=== PATIENT | female | born 1960 | race Two or more races ===

== ENCOUNTER 2024-01-07 13:15 | Emergency (ER) | payer OTHER ==
[~2024-01-07] VITALS: Ht 154.9 cm; Wt 81.4 kg
[2024-01-07] MEDS: cloNIDine HCL 0.1 MG TAB PO ONE (14:11)
[2024-01-07 14:30] LABS: Basophils # (auto) 0 10 ^3/uL (0-0.2); Basophils % (auto) 0.6 % (0.0-2.0); Eosinophils # (auto) 0 10 ^3/uL (0-0.8); Eosinophils % (auto) 0.8 % (0.0-7.0); Hematocrit 45.8 % (36.0-46.0); Hemoglobin 14.8 g/dL (12.2-16.2); Lymphocytes # (auto) 2.5 10 ^3/uL (0.4-5.4); Lymphocytes % (auto) 52.8 % (10.0-50.0); Mean Corpuscular Hemoglobin 29.3 pg (28.0-32.0); Mean Corpuscular Hgb Conc. 32.4 g/dL (32.0-36.0); Mean Corpuscular Volume 90.4 fL (80.0-100.0); Monocytes # (auto) 0.5 10 ^3/uL (0-1.3); Neutrophils # (auto) 1.7 10 ^3/uL (1.6-8.6); Neutrophils % (auto) 34.8 % (37.0-80.0); Nucleated Red Blood Cells % 0.2 %; Red Blood Cells 5.06 10^6/uL (4.0-5.20); Red Cell Distribution Width 14.9 % (11.8-14.3); White Blood Cell 4.8 10^3/uL (4.4-10.8)
[2024-01-07 14:46] LABS: Alanine Aminotransferase 26 U/L (7-40); Albumin 4.5 g/dL (3.2-4.8); Alkaline Phosphatase 87 U/L (46-116); Anion Gap 7 (5-15); Aspartate Aminotransferase 35 U/L (13-40); BUN/Creatinine Ratio 15.5 (10.0-20.0); Blood Urea Nitrogen 11 mg/dL (9-23); Calcium 9.2 mg/dL (8.5-10.1); Carbon Dioxide 28 mmol/L (20-30); Chloride 104 mmol/L (98-107); Glucose 101 mg/dL (74-106); Potassium 4.7 mmol/L (3.5-5.1); Sodium 139 mmol/L (136-145)
[2024-01-07 14:47] LABS: Bilirubin, Total 0.4 mg/dL (0.2-1.0); Total Protein 7.1 g/dL (5.7-8.2)
[2024-01-07] MEDS ORDERED: AMLO1TAB23 PO (19:31)
[2024-01-07 20:00] VITALS: BP 136/67; PULSE 66; RESP 18; TEMP 97.7; O2SAT 95
== END 2024-01-07 20:02 | disposition home or self-care (01) ==
LOC: ER 13:15
DX: I10 Essential (primary) hypertension (principal); Z79.899 Other long term (current) drug therapy
CPT/HCPCS: 36415; 70450; 80053; 82962; 84484; 85025; 93005

== ENCOUNTER 2025-05-10 12:21 | Emergency (ER) | payer MEDICAID, OTHER ==
[~2025-05-10] VITALS: Ht 162.6 cm; Wt 75.0 kg
[~2025-05-10 12:21] MED LIST: AMLO1TAB23 PO
[2025-05-10 13:44] LABS: Basophils # (auto) 0 10 ^3/uL (0-0.2); Basophils % (auto) 0.4 % (0.0-2.0); Eosinophils # (auto) 0 10 ^3/uL (0-0.8); Hematocrit 44.5 % (36.0-46.0); Hemoglobin 14.9 g/dL (12.2-16.2); Lymphocytes % (auto) 13.9 % (10.0-50.0); Mean Corpuscular Hemoglobin 29.5 pg (28.0-32.0); Mean Corpuscular Hgb Conc. 33.6 g/dL (32.0-36.0); Mean Corpuscular Volume 87.9 fL (80.0-100.0); Monocytes # (auto) 0.3 10 ^3/uL (0-1.3); Monocytes % (auto) 3.8 % (0.0-12.0); Neutrophils # (auto) 5.9 10 ^3/uL (1.6-8.6); Neutrophils % (auto) 81.9 % (37.0-80.0); Nucleated Red Blood Cells % 0.2 %; Platelet Count (auto) 257 10^3/uL (140-450); Red Blood Cells 5.06 10^6/uL (4.0-5.20); White Blood Cell 7.2 10^3/uL (4.4-10.8)
[2025-05-10 13:54] LABS: Chloride 106 mmol/L (98-107); Potassium 4.2 mmol/L (3.5-5.1); Sodium 144 mmol/L (136-145)
[2025-05-10 13:55] LABS: Anion Gap 11 (5-15); Carbon Dioxide 27 mmol/L (20-31)
[2025-05-10 13:56] LABS: INR 1.01 (0.9-1.15); Prothrombin Time 10.7 sec (9.3-11.8)
[2025-05-10 14:01] LABS: Blood Urea Nitrogen 12 mg/dL (9-23)
[2025-05-10 14:02] LABS: Glucose 142 mg/dL (74-106)
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
--- NOTE | 2025-05-10 15:09 | DVH ---
EXAM: XY L SHOULDER 2+ VIEW XRAY HISTORY: fall COMPARISON: None TECHNIQUE: 3 views of the left shoulder were performed. FINDINGS: No acute fracture or dislocation are identified about the left shoulder. No significant degenerative changes or loss of subacromial space. There is left lung base atelectasis versus scarring. IMPRESSION: No acute fracture of the left shoulder.
--- NOTE | 2025-05-10 15:31 | DVH ---
CLINICAL INDICATION: fall, trauma, pain TECHNIQUE: XY R HIP 1V XRAY Comparison: None FINDINGS/IMPRESSION: : There is no evidence of acute fracture or dislocation. Soft tissues are unremarkable. Severe degenerative changes of bilateral hips.
--- NOTE | 2025-05-10 16:07 | DVH ---
HISTORY: fall COMPARISON: None TECHNIQUE: Nonenhanced axial images through the facial bones with coronal and sagittal MPR. Radiation Dose Information: CT Dose: CTDI volume is 65.69 mGy. Dose-length product is 2229.04 mGy*cm FINDINGS: Mandible: INTACT Maxilla: INTACT Pterygoid plates: INTACT Zygomatic processes: NO FRACTURE. Zygomatic arches: Orbits: NORMAL BILATERALLY Sinuses: NORMAL Facial swelling: None IMPRESSION: 1. No acute facial fractures. Radiation optimization: All CT scans at this facility use at least one of these dose optimization stefan hniques: automated exposure control mA and/or kV adjustment per patient size (includes targeted exam s where dose is matched to clinical indication) or iterative reconstruction.
--- NOTE | 2025-05-10 17:14 | DVH ---
EXAM: CT HEAD WITHOUT CONTRAST HISTORY: fall COMPARISON: CT HEAD WITHOUT CONTRAST on DOS: 01/07/24 TECHNIQUE: Noncontrast axial CT images of the head were performed. Sagittal and coronal reformatted i mages were obtained. This CT exam was performed using 1 or more of the following dose reduction techn iques: Automated exposure control, adjustment of the mA and/or kv according to patient size, or the u se of iterative reconstruction techniques. Radiation Dose: CTDI volume is 65.69 mGy. Dose-length product is 1284.96 mGy*cm FINDINGS: No intracranial hemorrhage, mass, midline shift, hydrocephalus, or evidence of acute large vessel inf arct. There is a small mucous retention cysts in the caudal aspect of the right maxillary sinus. Ther e is convergent optic gaze. There is right periorbital soft tissue swelling. The bilateral external a uditory canals and middle ear spaces are clear. There is sclerosis of the caudal margins of the bilat eral mastoid air cells, greater on the right, stable. There are likely old bilateral nasal bone fract ures. No cranial fracture. IMPRESSION: 1. No acute intracranial process. 2. Right periorbital soft tissue swelling and convergent optic gaze. 3. Sclerosis of the bilateral mastoid air cells may be due to old mastoiditis or developmental phenom enon.
[2025-05-10] MEDS ORDERED: IBUP1TAB5 PO (17:27)
[2025-05-10 17:45] VITALS: BP 132/77; PULSE 77; RESP 16; TEMP 98.7; O2SAT 97
[2025-05-10] MEDS ORDERED: ONDA-155 PO (17:46)
== END 2025-05-10 17:48 | disposition home or self-care (01) ==
LOC: ER 12:21
DX: S05.11XA Contusion of eyeball and orbital tissues, right eye, initial encounter (principal); M25.512 Pain in left shoulder; M25.551 Pain in right hip; I10 Essential (primary) hypertension; Z79.1 Long term (current) use of non-steroidal anti-inflammatories (NSAID); Z79.899 Other long term (current) drug therapy; V00.141A Fall from scooter (nonmotorized), initial encounter; Y93.I9 Activity, other involving external motion; Y92.488 Other paved roadways as the place of occurrence of the external cause; Y99.8 Other external cause status
CPT/HCPCS: 36415; 70450; 70486; 73030; 73501; 80048; 85025; 85610